=== PATIENT | female | born 1975 | race Caucasian/White ===

== ENCOUNTER 2023-12-05 15:48 | Outpatient (CLI) | payer BC, SELFPAY | END 2023-12-05 15:49 | disposition home or self-care (01) | PROVIDERS: PCP Family Medicine; Visit Provider Family Medicine | DX: N95.1 Menopausal and female climacteric states (principal); E34.9 Endocrine disorder, unspecified; Z11.59 Encounter for screening for other viral diseases; Z13.220 Encounter for screening for lipoid disorders | CPT/HCPCS: 80053; 80061; 83001; 84443; 84480; 86803 ==